=== PATIENT | female | born 1955 | race Caucasian/White ===

== ENCOUNTER 2025-01-13 12:05 | Outpatient (RCR) | payer MEDICARE, SELFPAY ==
[2025-01-13 12:30] VITALS: BMI 49.6
--- NOTE | 2025-01-13 12:47 | WNDPHOTO ---
PHOTO ONLY - See Nursing Notes and/ or assessments for documentation.
== END 2025-04-03 08:14 | disposition home or self-care (01) ==
LOC: ANHWOC 12:05
PROVIDERS: PCP Nurse Practitioner Family; Visit Provider Nurse Practitioner Family
DX: S81.809A Unspecified open wound, unspecified lower leg, initial encounter (principal)
CPT/HCPCS: 99215; A9270; G0463